=== PATIENT | male | born 1940 | race Caucasian/White ===

== ENCOUNTER 2024-03-24 15:54 | Emergency (ER) | payer MEDICARE, SELFPAY ==
[2024-03-24 16:11] VITALS: BP 155/90; PULSE 50; RESP 16; TEMP 37.2; O2SAT 99
--- NOTE | 2024-03-24 16:42 | ED.SKABFB ---
HPI - Skin/Abscess/Foreign Bdy General Chief complaint: Skin/Abscess/Foreign Body Stated complaint: Dog Bite Time Seen by Provider: 03/24/24 16:43 Source: patient Mode of arrival: ambulatory Limitations: no limitations History of Present Illness HPI narrative: 83 yo M presents with dog bite to R hand. pt's dog bit him approx. 10 days ago. Concerned for infection. States redness and drainage started approx. 4 days ago. All systems reviewed and negative except as noted above. Related Data Home Medications Medication Instructions Recorded Confirmed atenolol 50 mg tablet 50 mg PO DAILY 03/24/24 03/24/24 dorzolamide 22.3 mg-timolol 6.8 1 drp EACH EYE BID 03/24/24 03/24/24 mg/mL eye drops latanoprost 0.005 % eye drops 1 drp EACH EYE HS 03/24/24 03/24/24 Allergies Allergy/AdvReac Type Severity Reaction Status Date / Time No Known Allergies Allergy Unknown Unverified 03/24/24 16:06 Review of Systems Review of Systems: CONSTITUTIONAL: Denies fever, chills, or sweats. EYES: Denies visual changes, redness, or discharge. ENT: Denies rhinorrhea, congestion, sore throat, or otalgia. CARDIOVASCULAR: Denies chest pain, palpitations, or edema. RESPIRATORY: Denies cough or dyspnea. GASTROINTESTINAL: Denies abdominal pain, nausea, vomiting, or diarrhea. GENITOURINARY: Denies dysuria or hematuria. SKIN: Denies rash or itching. Reports dog bite to right hand. MUSCULOSKELETAL: Denies back pain, joint pain, or myalgia. NEUROLOGIC: Denies headache, numbness, or weakness. PSYCHIATRIC: Denies anxiety or depression. All other systems reviewed are negative, except as documented in HPI. PMFSH Comments At time of signature, agree with nursing past medical, surgical, social and family history. There is no relevant family history pertinent to the presenting complaint. Exam Narrative: GENERAL: This is a well-nourished, well-developed patient, in no apparent distress. HEAD: normocephalic, atraumatic. EYES: PERRL. Sclera clear/white. Vision is grossly intact. EARS: External ears normal NOSE: External nose normal NECK: Neck supple, non-tender without lymphadenopathy, masses or thyromegaly. CARDIOVASCULAR: Regular rate and rhythm without murmurs, gallops, or rubs. RESPIRATORY: Clear to auscultation. Breath sounds equal bilaterally. No wheezes, rales, or rhonchi. SKIN: Infected dog bite wound to dorsal aspect right hand. Approximate 2 cm wound with surrounding scabbing. Wound is malodorous with purulent drainage. NEURO: awake, alert, and oriented to person, place and time. There were no obvious focal neurologic abnormalities. EXTREMITIES: No joint tenderness, effusion, or edema noted. Course Course Level of Care: Express Care Visit Vital Signs Vital signs: Vital Signs Temperature 37.2 C 03/24/24 16:11 Pulse Rate 50 L 03/24/24 16:11 Respiratory Rate 16 03/24/24 16:11 Blood Pressure 155/90 H 03/24/24 16:11 Pulse Oximetry 99 03/24/24 16:11 Oxygen Delivery Room Air 03/24/24 16:11 Temperature 37.2 C 03/24/24 16:11 Pulse Rate 50 L 03/24/24 16:11 Respiratory Rate 16 03/24/24 16:11 Blood Pressure 155/90 H 03/24/24 16:11 Pulse Oximetry 99 03/24/24 16:11 Oxygen Delivery Room Air 03/24/24 16:11 Reviewed MDM - Skin/Abscess/Foreign Bdy MDM Narrative Medical decision making narrative: will treat infected dog bite wound with Augmentin. Range of motion and neurovascularly intact to right upper extremity. Patient well-appearing, nontoxic. Patient is aware of diagnosis, understands and agrees to treatment plan. Anticipatory guidance given. Patient agrees to follow-up as directed and is aware of reasons to seek care at the emergency department. Portions of this record may have been created with voice recognition software Discharge Plan Discharge Clinical Impression: Dog bite of right hand with infection Patient Disposition: Home, Self-Care Condition: Stable I
== END 2024-03-24 16:50 | disposition home or self-care (01) ==
PROVIDERS: Emergency Provider Nurse Practitioner Family
DX: S61.451A Open bite of right hand, initial encounter (principal); L08.9 Local infection of the skin and subcutaneous tissue, unspecified; W54.0XXA Bitten by dog, initial encounter; H40.9 Unspecified glaucoma; I48.91 Unspecified atrial fibrillation; Z95.0 Presence of cardiac pacemaker
CPT/HCPCS: 99203; G0463